=== PATIENT | female | born 1965 | race African-American/Black ===

== ENCOUNTER 2024-08-28 15:55 | Observation (INO) ==
[2024-08-28] MEDS ORDERED: NS 1,000 ML IV 1,000 ML IV SCH (16:00)
--- NOTE | 2024-08-28 17:24 | DR.H&P ---
H&P History & Physical for Day of: H&P Date: 08/28/24 Chief Complaint Chief Complaint: chest pain History of Present Illness History of Present Illness: Patient is a 59 year old black female who presents today with complaints of right arm pain and midsternal chest pain that is worse under her left breast. Pt states the pain started yesterday. Pt describes the pain as a sharp pain under her left breast and midsternal chest pressure and tightness. Pt reports her chest pain started yesterday and got worse last night when she was trying to sleep. Pt states the chest pain is constant and is worse when she takes a deep breath in. Pt reports shortness of breath with minimal exertion x 2 days. She denies any respiratory related symptoms. Denies dizziness, [place], or blurred vision. Denies jaw pain, nausea, or vomiting. Past Medical History Past Medical History: Diabetes, GERD and Hypothyroidism Additional Medical History: Spinal stenosis of cervical region, paresthesia of right upper limb Past Surgical History Surgical History: Cholecystectomy Family History Family Medical History: Cancer Social History Does patient currently use any type of tobacco product: No Have you used tobacco products in the last 12 months: No Alcohol Use: None Drug Use: None Allergies Allergies Allergy/AdvReac Type Severity Reaction Status Date / Time amoxicillin Allergy Verified 08/28/24 17:05 Review of Systems Constitutional: No Symptoms Reported Eyes: No Symptoms Reported Respiratory: SOB with Excertion Cardiovascular: Chest Pain and See HPI Gastrointestinal: No Symptoms Reported Genitourinary: No Symptoms Reported Musculoskeletal: Shoulder Pain (right ) and Arm Pain (right ) Skin: No Symptoms Reported Neurological: Numbness (right arm (chronic) ) Oriented: Normal Eyes: Normal Ear: Normal Nose: Normal Throat: Normal Respiratory: Clear Throughout Cardiovascular: Tachycardia : Normal Auscultation: Bowel Sounds: Normal Palpation: Normal Tenderness: Normal Skin: Normal Musculoskeletal: Arm (chronic right arm numbness/tingling ) Psychiatric: Normal Mood Description: Calm Affect: Normal Speech Pattern: Clear
--- NOTE | 2024-08-28 17:52 | EKG ---
Test Reason : C/P Blood Pressure : */* mmHG Vent. Rate : 105 BPM Atrial Rate : 105 BPM P-R Int : 130 ms QRS Dur : 80 ms QT Int : 348 ms P-R-T Axes : 5 -2 25 degrees QTc Int : 459 ms Sinus tachycardia Cannot rule out Anterior infarct , age undetermined diffuse st elevation Abnormal ECG No previous ECGs available Confirmed by Merlin Pyle MD ([id number]) on 08/29/2024 7:28:01 AM Referred By: Confirmed By: Merlin Pyle MD
[2024-08-28 18:00] LABS: ABG ALLEN TEST POS; ABG BASE EXCESS 5.8 mmol/L (-2.0-2.0); ABG HCO3 29.8 mmol/L (22-26)
[2024-08-28] MEDS: NS 1,000 ML IV 1,000 ML IV SCH (18:16)
[2024-08-28 18:54] LABS: BASOPHILS # (AUTO) 0.1 X10^3/uL (0.0-0.1); BASOPHILS % (AUTO) 0.6 % (0.2-1.0); EOSINOPHILS # (AUTO) 0.1 x10^3/uL (0.0-0.2); EOSINOPHILS % (AUTO) 1.2 % (0.9-2.9); HEMATOCRIT 37.2 % (36.0-47.0); HEMOGLOBIN 12.1 g/dL (12.0-16.0); LYMPHOCYTES # (AUTO) 3.4 X10^3/uL (1.3-2.9); LYMPHOCYTES % (AUTO) 36.4 % (21.0-51.0); MEAN CORPUSCULAR HEMOGLOBIN 25.7 pg (27.0-34.0); MEAN CORPUSCULAR HGB CONC 32.4 g/dL (33.0-35.0); MEAN CORPUSCULAR VOLUME 79.1 fL (80.0-100.0); MEAN PLATELET VOLUME 8.4 fL (7.4-11.0); MONOCYTES # (AUTO) 0.8 x10^3/uL (0.3-0.8); NEUTROPHILS # (AUTO) 4.9 x10^3/uL (2.2-4.8); NEUTROPHILS % (AUTO) 52.8 % (42.0-75.0); PLATELET COUNT 380 X10^3/uL (150.0-450.0); RED CELL DISTRIBUTION WIDTH 16.5 % (11.6-16.5); WHITE BLOOD COUNT 9.3 X10^3/uL (3.6-10.0)
[2024-08-28 18:56] LABS: ERYTHROCYTE SEDIMENTATION RATE 70 MM/HOUR (0-20)
[2024-08-28 19:08] LABS: ALANINE AMINOTRANSFERASE 23 Units/L (12-78); ALBUMIN 3.7 g/dL (3.4-5.0); ALKALINE PHOSPHATASE 101 Units/L (46-116); ASPARTATE AMINO TRANSFERASE 19 Units/L (15-37); BLOOD UREA NITROGEN 15 mg/dL (7-18); CALCIUM 9.5 mg/dL (8.5-10.1); CARBON DIOXIDE 29.1 mmol/L (21-32); CHLORIDE 100 mmol/L (98-107); COR NA(FOR HYPERGLY) 137 mmol/L (136-145); FREE T4 (FREE THYROXINE) 1.27 ng/dL (0.76-1.46); GLUCOSE 127 mg/dL (65-99); POTASSIUM 3.4 mmol/L (3.5-5.1); SODIUM 136 mmol/L (136-145); TOTAL PROTEIN 7.6 g/dL (6.4-8.2); TSH (3RD GENERATION) 1.737 uIU/mL (0.358-3.74); eGFR NON BLACK RACES 45 (>60)
[2024-08-28 20:00] VITALS: BMI 55.7
--- NOTE | 2024-08-28 20:59 | EKG ---
Test Reason : C/P Blood Pressure : */* mmHG Vent. Rate : 105 BPM Atrial Rate : 105 BPM P-R Int : 156 ms QRS Dur : 88 ms QT Int : 352 ms P-R-T Axes : 17 3 30 degrees QTc Int : 465 ms Sinus tachycardia Diffuse st elevation persists -consider pericarditis-pr depression too Abnormal ECG When compared with ECG of 28-AUG-2024 17:29, (Unconfirmed) No significant change was found Confirmed by Merlin Pyle MD ([id number]) on 08/29/2024 7:30:39 AM Referred By: Confirmed By: Merlin Pyle MD
[2024-08-28] MEDS ORDERED: CONSULT PHARMACY - POTASSIUM & MAGNESIUM XX SCH (21:00)
[2024-08-28] MEDS: K-DUR TAB 20 MEQ PO SCH (21:22)
--- NOTE | 2024-08-29 05:20 | EKG ---
Test Reason : C/P Blood Pressure : */* mmHG Vent. Rate : 101 BPM Atrial Rate : 101 BPM P-R Int : 152 ms QRS Dur : 88 ms QT Int : 364 ms P-R-T Axes : 28 5 34 degrees QTc Int : 471 ms Sinus tachycardia diffuse st elevation persists- with pr depression- consider pericarditis Abnormal ECG When compared with ECG of 28-AUG-2024 20:37, (Unconfirmed) No significant change was found Confirmed by Merlin Pyle MD ([id number]) on 08/29/2024 7:31:51 AM Referred By: Confirmed By: Merlin Pyle MD
[2024-08-29 06:16] LABS: BASOPHILS % (AUTO) 0.6 % (0.2-1.0); EOSINOPHILS # (AUTO) 0.2 x10^3/uL (0.0-0.2); EOSINOPHILS % (AUTO) 1.9 % (0.9-2.9); HEMATOCRIT 34.8 % (36.0-47.0); HEMOGLOBIN 11.1 g/dL (12.0-16.0); LYMPHOCYTES # (AUTO) 2.7 X10^3/uL (1.3-2.9); LYMPHOCYTES % (AUTO) 33.9 % (21.0-51.0); MEAN CORPUSCULAR HEMOGLOBIN 25.3 pg (27.0-34.0); MEAN PLATELET VOLUME 8.5 fL (7.4-11.0); MONOCYTES # (AUTO) 0.6 x10^3/uL (0.3-0.8); MONOCYTES % (AUTO) 7.8 % (0.0-13.0); NEUTROPHILS # (AUTO) 4.5 x10^3/uL (2.2-4.8); NEUTROPHILS % (AUTO) 55.8 % (42.0-75.0); PLATELET COUNT 371 X10^3/uL (150.0-450.0); RED CELL DISTRIBUTION WIDTH 16.7 % (11.6-16.5); WHITE BLOOD COUNT 8.1 X10^3/uL (3.6-10.0)
[2024-08-29] MEDS: NovoLIN R (or HumuLIN R) SUBCUT PRN (06:17)
[2024-08-29 06:35] LABS: ALBUMIN 3.2 g/dL (3.4-5.0); CALCIUM 8.9 mg/dL (8.5-10.1); CARBON DIOXIDE 27.7 mmol/L (21-32); COR CA(FOR HYPOALB) 9.5 mg/dL (8.5-10.1); CREATININE 1.22 mg/dL (0.55-1.02); MAGNESIUM 2.1 mg/dL (2.0-2.9); POTASSIUM 4.1 mmol/L (3.5-5.1)
--- NOTE | 2024-08-29 08:14 | RAD ---
EXAM:CHEST, 1 VIEWHISTORY:CHEST PAIN;COMPARISON:None.TECHNIQUE:AP portableFINDINGS:Mildly prominent cardiac silhouette, accentuated by AP technique. No focal consolidation, pleural effusion, or visible pneumothorax.IMPRESSION:No acute cardiopulmonary findings.THIS IS AN ELECTRONICALLY VERIFIED FINAL REPORT08/29/2024 8:11 AM - Electronically signed by Logan Jamison MD
--- NOTE | 2024-08-29 09:00 | EKG ---
Test Reason : cp, sob Blood Pressure : */* mmHG Vent. Rate : 105 BPM Atrial Rate : 105 BPM P-R Int : 154 ms QRS Dur : 88 ms QT Int : 352 ms P-R-T Axes : 17 3 24 degrees QTc Int : 465 ms Sinus tachycardia with pr depression st elevation-unchanged over 4 ekgs Abnormal ECG When compared with ECG of 29-AUG-2024 04:57, No significant change was found Confirmed by Merlin Pyle MD ([id number]) on 08/29/2024 3:00:53 PM Referred By: Confirmed By: Merlin Pyle MD
[2024-08-29] MEDS: SYNTHROID 75 mcg TAB PO SCH (10:10)
[2024-08-29] MEDS: FARXIGA PO SCH (10:10)
[2024-08-29] MEDS: PROTONIX TAB 40 MG PO SCH (10:11)
--- NOTE | 2024-08-29 12:37 | CT ---
EXAMINATION:CTA, CHESTHISTORY:chest pain; .COMPARISON:None.TECHNIQUE:Routine axial imaging of the chest was performed. CT angiography of the pulmonary arteries was performed. Maximum intensity projection images were obtained along with volume rendered images on a workstation.. The above CT scan was done with automated exposure control and the mA and kV was adjusted to obtain quality images according to patient size.FINDINGS:Lungs: There is respiratory motion. There is subpleural reticulation noted. No acute infiltrates, suspicious pulmonary nodules, ground-glass opacities.Central Airways: No obstructing endobronchial lesionsPleura: No pleural effusion or pneumothorax.Thoracic Aorta: Ectasia. Atherosclerotic calcification. No dissection.Main Pulmonary Trunk: Normal diameter. There is pulmonary embolus and small order branches to the right middle lobe, right upper lobe, lingula and lower lobes. No saddle embolus or evidence for right heart strainLymph Nodes: There is lymphadenopathy in the chest. Right paratracheal lymph node measures 2.25 x 1.26 cm. Prevascular lymph node 1.9 x 1.17 cm. Right hilar node 1.97 x 1.89 cm. Left hilar node 1.92 x 1.55. Subcarinal lymph node 6.5 x 1.6 cm. Azygoesophageal recess lymph node 2.3 x 3.2 cm. Findings are nonspecific and can be seen with metastatic disease lymphoma or other etiology. Correlate clinicallyHeart/Pericardium: Cardiomegaly. No significant pericardial effusion.Liver: Previously described heterogeneous mass anteriorly in the right lobe of the liver measures 7.4 x 2.8 cm. Differential diagnosis is fibrolamellar carcinoma or FNH. There are previous outside CTs and MRI of the abdomen.GB/Biliary: Cholecystectomy. No dilated ductSpleen: Normal size and densityPancreas: No acute findings as visualizedAdrenal Glands: No massKidneys no hydronephrosis.Abdominal Aorta: Tapers normallyRetroperitoneum: No pathologically enlarged lymph nodesBowel/Peritoneal Cavity: No acute findings as visualizedOsseous Structures: Degenerative changes in the spine. No acute findings. No bony lesionsOther: NoneIMPRESSION:There is pulmonary embolus in segmental branches to the upper lobes, right middle lobe, lingula and lower lobes. No saddle embolus or evidence for right heart strain.Subpleural reticulation in the lungs. No acute infiltratesPreviously described right liver masses again noted as previously described. This could represent a fibrolamellar carcinoma or FNHNonspecific mediastinal adenopathy. Rule out malignancy.The above CT scan was done with automated exposure control and the mA and kV was adjusted to obtain quality images according to patient sizeTHIS IS AN ELECTRONICALLY VERIFIED FINAL REPORT08/29/2024 12:34 PM - Electronically signed by Joshua Catalan MD
[2024-08-29 14:43] LABS: INR 1.12 (0.8-1.3)
[2024-08-29] MEDS ORDERED: HEPARIN SODIUM INJ 5000 UNITS ONE (15:28)
[2024-08-29] MEDS: HEPARIN SODIUM IN D5W 25,000 UNITS/500 ML BAG IV PRN (15:43)
[2024-08-29] MEDS: HEPARIN SODIUM INJ 5000 UNITS IVP ONE (15:46)
--- NOTE | 2024-08-29 16:22 | VAS ---
EXAM: Duplex ultrasound of bilateral lower extremity HISTORY: Swelling of the lower extremities with tenderness. COMPARISON: None. TECHNIQUE: 48 images were provided for interpretation. FINDINGS: The bilateral common femoral vein and popliteal vein demonstrate compression and augmentation. Pleas e note, the mid and distal superficial femoral veins were not clearly visualized on this examination due to patient's body habitus and therefore this is classified as a limited duplex ultrasound exam of the lower extremities. IMPRESSION: 1. There is no definitive evidence of deep venous thrombosis in the visualized portions of the bilate ral lower extremity veins. Please note that exam is limited as detailed above due to patient's body habitus. THIS IS AN ELECTRONICALLY VERIFIED FINAL REPORT 08/29/2024 4:19 PM - Electronically signed by Marcelo Butterfield MD
--- NOTE | 2024-08-29 16:24 | VAS ---
EXAM: UPPER EXT VENOUS, BILAT HISTORY: R/O DVT; COMPARISON: None. TECHNIQUE: images were provided for interpretation. FINDINGS: The visualized portions of the left or right internal jugular vein, subclavian vein, brachial vein, u lnar vein, radial vein and axillary vein demonstrate compression. IMPRESSION: 1. There is no evidence of deep venous thrombosis in visualized portions of the bilateral upper extre mity veins. THIS IS AN ELECTRONICALLY VERIFIED FINAL REPORT 08/29/2024 4:22 PM - Electronically signed by Marcelo Butterfield MD
--- NOTE | 2024-08-29 18:29 | EKG ---
Test Reason : left shoulder pain Blood Pressure : */* mmHG Vent. Rate : 104 BPM Atrial Rate : 104 BPM P-R Int : 146 ms QRS Dur : 86 ms QT Int : 352 ms P-R-T Axes : 15 5 38 degrees QTc Int : 462 ms Sinus tachycardia Poor R-wave progression diffuse st elevation- no change in last 5 ekgs : ?LVH Abnormal ECG When compared with ECG of 29-AUG-2024 08:20, No significant change was found Confirmed by Merlin Pyle MD ([id number]) on 08/30/2024 7:20:01 AM Referred By: Confirmed By: Merlin Pyle MD
[2024-08-29] MEDS ORDERED: TYLENOL 325 MG TAB PO PRN (18:59)
[2024-08-29] MEDS: MORPHINE SULFATE INJ 2 MG INJ IVP ONE (20:23)
[2024-08-29] MEDS: TORADOL 30 MG VIAL IVP ONE (20:23)
[2024-08-29] MEDS: SNACK - Diabetic Appropriate PO SCH (20:50)
[2024-08-29 20:56] VITALS: TEMP 99.1
[2024-08-29 21:21] VITALS: BP 152/64; PULSE 101; RESP 28; O2SAT 97
== END 2024-08-29 21:58 | disposition short-term general hospital (02) ==
LOC: MED/SURG → ICU 08-29 14:51
PROVIDERS: ADMIT Internal Medicine; ATTEND Internal Medicine
DX: R00.0 Tachycardia, unspecified; R07.89 Other chest pain; M79.601 Pain in right arm; Z68.43 Body mass index [BMI] 50.0-59.9, adult; M19.90 Unspecified osteoarthritis, unspecified site; R06.02 Shortness of breath; E66.01 Morbid (severe) obesity due to excess calories; R70.0 Elevated erythrocyte sedimentation rate; M25.512 Pain in left shoulder; R73.09 Other abnormal glucose; R94.31 Abnormal electrocardiogram [ECG] [EKG]; I26.99 Other pulmonary embolism without acute cor pulmonale; R20.0 Anesthesia of skin; K21.9 Gastro-esophageal reflux disease without esophagitis; R79.82 Elevated C-reactive protein (CRP); R79.1 Abnormal coagulation profile; E87.6 Hypokalemia; R09.02 Hypoxemia; E03.8 Other specified hypothyroidism; R60.0 Localized edema